=== PATIENT | female | born 1955 | race Caucasian/White ===

== ENCOUNTER → 2024-10-26 06:28 | Day surgery (SDC) | payer MEDICARE, OTHER, SELFPAY ==
[2024-10-26 08:17] LABS: Glucose - Point of Care 301 mg/dl (70-99)
== END ==
LOC: GI 06:28
PROVIDERS: ATTENDING PHYSICIAN Internal Medicine Gastroenterology; FAMILY PHYSICIAN Family Medicine
DX: K31.89 Other diseases of stomach and duodenum (principal); Z13.810 Encounter for screening for upper gastrointestinal disorder
CPT/HCPCS: 43239; 88305; 82962; 88342